=== PATIENT | female | born 1970 | race Caucasian/White ===

== ENCOUNTER 2016-10-02 13:38 | Day surgery (SDC) | payer BC ==
[~2016-10-02] VITALS: Ht 152.4 cm; Wt 128.5 kg
--- NOTE | ~2016-10-02 | OR ---
PATIENT'S NAME: ZHOU KHALIL [facility] AGE: 45 Y [address] ROOM: [place] [address] LOCATION: [facility] [place] ADMIT DATE: 10/02/2016 OR/Procedure Report DISCHARGE DATE: 10/03/2016 FAMILY PHYSICIAN: Amy Yang ATTENDING PHYSICIAN: Daya Keller SURGEON: Daya Keller MD POSTAL INSPECTOR: DATE OF PROCEDURE: 10/02/2016 PREOPERATIVE DIAGNOSES: 1. Right proximal ureter stone. 2. urinary tract infection. POSTOPERATIVE DIAGNOSES: 1. Right proximal ureter stone. 2. urinary tract infection. PROCEDURE PERFORMED: Cystoscopy, stone manipulation, right stent placement. ANESTHESIA: MAC. COMPLICATIONS: None. INDICATION FOR PROCEDURE: The patient is a 45-year-old female with approximately 2-week history of right flank pain. Abdominopelvic CT scan reveals a 6 mm stone with severe hydronephrosis and parenchymal thinning. DETAILS OF PROCEDURE: After informed consent obtained, the patient was taken to the operating room. A MAC anesthetic was applied and she was placed in the dorsal lithotomy position. The groin area was prepped and draped in normal sterile fashion. Cystoscope was introduced into the urethra and bladder without difficulty. The urine was extremely cloudy and I irrigated several times to increased visualization. A guidewire was then placed in the distal right ureter and passed up to the level of the stone. With some difficulty, I was able to pass the wire beyond the stone up into the renal pelvis. At this point, the patient begins to drink copious amounts of pus. Then, yellow Flexi- Tip catheter was placed over the guidewire up to the level of the stone. I used this to free up the stone and manipulate up into the renal pelvis. Next, a 6-Syriac multi-length ureteral stent was passed over guidewire up into the renal pelvis. Radiograph imaging showed good position of the stent. The patient continued to drain copious amounts of pus through the stent. The bladder was irrigated again and the procedure terminated. The patient tolerated the procedure well and transferred to recovery room in good condition. PATIENT'S NAME: ZHOU KHALIL [facility] AGE: 45 Y [address] ROOM: [place] [address] LOCATION: [facility] [place] ADMIT DATE: 10/02/2016 OR/Procedure Report DISCHARGE DATE: 10/03/2016 FAMILY PHYSICIAN: Amy Yang ATTENDING PHYSICIAN: Daya Keller MD KEERTHI PLEITEZ/parmjit /[id number] CC: HARPREET Ghosh d: 10/04/16 0014 t: 10/13/16 0902, OPERATIVE SUMMARY
[2016-10-02] MEDS ORDERED: IBUPROFEN800 MG PO (14:30)
[2016-10-02] MEDS ORDERED: CHLORDIAZEPO-A1 EACH PO (14:31)
[2016-10-02] MEDS ORDERED: Q-PAP325 MG PO (14:32)
[2016-10-02] MEDS ORDERED: BYSTOLIC5 MG PO (14:32)
[2016-10-02] MEDS ORDERED: PROVENTIL OR V6.7 GM INH (14:33)
[2016-10-02] MEDS ORDERED: SYMBICORT 16010.2 GM INH (14:34)
[2016-10-02 14:40] LABS: BILIRUBIN URINE NEGATIVE (NEGATIVE); BLOOD URINE 250 /UL (NEGATIVE); COLOR URINE YELLOW (YELLOW); GLUCOSE URINE NEGATIVE (NEGATIVE); KETONE URINE NEGATIVE (NEGATIVE); LEUKOCYTES URINE 500 /UL (NEGATIVE); NITRITE URINE NEGATIVE (NEGATIVE); PROTEIN URINE 100 mg/dL (NEGATIVE); SPEC GRAVITY URINE 1.015 (1.003-1.035); TURBIDITY URINE 4+ (CLEAR); UROBILINOGEN URINE NORMAL (NORMAL)
[2016-10-02 15:02] LABS: WBC URINE PACKED FIELD #/HPF (NEGATIVE)
[2016-10-02 15:07] LABS: BACTERIA URINE MODERATE (NEGATIVE); YEAST URINE FEW (NEGATIVE)
[2016-10-03 05:13] LABS: BASOPHIL % 0.1 %; HEMATOCRIT 35.2 % (33.0-46.0); HEMOGLOBIN 11.3 g/dL (10.0-15.0); IMMATURE GRANULOCYTE # 0.1 K/uL (0.0-0.3); IMMATURE GRANULOCYTE % 0.7 %; LYMPHOCYTE # 1.4 K/uL (0.8-4.0); LYMPHOCYTE % 19.2 %; MCH 27.1 pg (27.0-34.0); MCHC 32.1 gm/dL (32.0-36.5); MCV 84.4 fl (83.0-98.0); MONOCYTE # 0.2 K/uL (0.0-1.0); MONOCYTE % 2.7 %; MPV 9.5 fl (9.4-12.4); NEUTROPHIL # (ANC) 5.5 K/uL (1.8-7.8); NEUTROPHIL % 77.3 %; NRBC % 0 /100WBC (0-0.00); PLATELET COUNT 377 K/uL (150-450); RBC 4.17 M/uL (3.50-5.50); RDW-CV 13.2 % (11.9-14.6); WBC 7.1 K/uL (4.0-11.0)
[2016-10-03 05:26] LABS: ALBUMIN 2.4 gm/dL (3.5-5.0); ANION GAP 12.5 (10.0-19.0); CALCIUM 8.8 mg/dL (8.5-10.5); CREATININE 0.9 mg/dL (0.5-1.1); PHOSPHORUS 2.4 mg/dL (2.5-4.9); POTASSIUM 4.5 mMol/L (3.7-5.1)
[2016-10-03] MEDS ORDERED: BACTRIM DS1 TAB PO (18:52)
[2016-10-03] MEDS ORDERED: TYLENOL WITH C1 EACH PO (18:53)
== END 2016-10-03 21:10 | disposition disaster alternative care site (69) ==
LOC: GMSU 13:38 → GSDC 13:38 → GMSU 17:03 → GSDC 10-03 21:10
PROVIDERS: Urology
PROC: 0T768DZ Dilation of Right Ureter with Intraluminal Device, Via Natural or Artificial Opening Endoscopic (ICD-10-PCS; principal; 2016-10-02)
DX: N13.2 Hydronephrosis with renal and ureteral calculous obstruction (principal); N39.0 Urinary tract infection, site not specified; Z88.5 Allergy status to narcotic agent; Z91.013 Allergy to seafood; Z79.899 Other long term (current) drug therapy; M79.1 Myalgia; Z98.890 Other specified postprocedural states
CPT/HCPCS: C2617; J0696; J1580; J2001; J7030; J7040; J7050; J7120

== ENCOUNTER → 2016-10-19 | Outpatient (CLI) | payer BC ==
[~2016-10-19] MED LIST: BACTRIM DS1 TAB PO; BYSTOLIC5 MG PO; CHLORDIAZEPO-A1 EACH PO; IBUPROFEN800 MG PO; PROVENTIL OR V6.7 GM INH; Q-PAP325 MG PO; SYMBICORT 16010.2 GM INH; TYLENOL WITH C1 EACH PO
== END | disposition disaster alternative care site (69) ==
LOC: GRAD 15:15
DX: N20.0 Calculus of kidney (principal); Z96.0 Presence of urogenital implants